=== PATIENT | female | born 1980 | race Caucasian/White ===

== ENCOUNTER 2017-08-25 17:42 | Emergency (ER) | END 2017-08-25 21:34 | disposition home or self-care (01) ==

== ENCOUNTER 2017-12-08 06:06 | Day surgery (SDC) | END 2017-12-08 12:25 | disposition home or self-care (01) ==

== ENCOUNTER 2017-12-10 06:58 | Emergency (ER) | END 2017-12-10 09:06 | disposition home or self-care (01) ==